=== PATIENT | female | born 1945 | race Caucasian/White ===

== ENCOUNTER 2023-07-04 15:42 | Emergency (ER) | payer MEDICARE ==
--- NOTE | 2023-07-04 15:44 | ERPHSYRPT ---
- History of Present Illness Source: patient, family, EMS Exam Limitations: no limitations Occurred: just prior to arrival Injuries/Pain Location: lower extremity (Left hip, left femur and left knee) Loss of Consciousness: no loss of consciousness Severity of Pain-Max: moderate Severity of Pain-Current: moderate (With movement) Modifying Factors: Improves With: movement Associated Symptoms (Fall): extremity injury (Left hip, left femur and left knee) - History of Present Illness Time Seen by Provider: 07/04/23 15:44 Physician History: This is a 77-year-old white female patient was brought into the emergency department by ambulance service secondary to falling at the bank. She tripped over slightly raised ledge. She fell hitting her left hip and left upper leg and knee. Patient has had hip replacement twice on the left side. She stated that she did very slightly hit her left elbow and her forehead. However, she states that she did not lose consciousness. She specifically stated she does not want a CT scan of her head or an x-ray of the left elbow. She is mostly concerned about the left hip and femur and left knee. Patient denies chest pain. Patient denies shortness of breath. She has no abdominal pain. Patient states she does not want these x-rays performed. However, she does not want any narcotic medication. She will agree to Tylenol medication. She states "I cannot be here I have to get home to my who has lung cancer" (NESTOR PONCE) Allergies/Adverse Reactions: morphine Adverse Reaction (Verified 07/04/23 15:47) Home Medications: Lansoprazole 15 mg PO DAILY 07/04/23 [History] Travel Risk - International Travel Have you traveled outside of the country in past 3 weeks: No - Coronavirus Screening Are you exhibiting any of the following symptoms?: No Close contact with a COVID-19 positive Pt in past 14-21 Days: No - Review of Systems Constitutional: No Symptoms Eyes: No Symptoms Ears, Nose, & Throat: No Symptoms Respiratory: No Symptoms Cardiac: No Symptoms Abdominal/Gastrointestinal: No Symptoms Genitourinary Symptoms: No Symptoms Musculoskeletal: Injury (Left hip, left femur and left knee) Skin: No Symptoms Neurological: No Symptoms Psychological: No Symptoms Endocrine: No Symptoms Hematologic/Lymphatic: No Symptoms Immunological/Allergic: No Symptoms All Other Systems: Reviewed and Negative - Past Medical History Pertinent Past Medical History: Yes - Past Surgical History Past Surgical History: Yes - E[place]oy Coma Score Best Eye Response (Eleroy): (4) open spontaneously Best Verbal Response (Elena): (5) oriented Best Motor Response (Eleroy): (6) obeys commands [place] Total: 15 - Physical Exam General Appearance: no apparent distress, alert, anxiety Head Injury: no evidence of injury Eye Exam: PERRL/EOMI, eyes nml inspection ENT Exam: airway nml, nml ext.inspection Neck Exam: supple, trachea midline, full range of motion, normal alignment, normal inspection Respiratory/Chest Exam: normal breath sounds, No chest tenderness, No respiratory distress, No ecchymosis, No crepitus Cardiovascular Exam: normal heart sounds, regular rate/rhythm Gastrointestinal Exam: soft, normal bowel sounds, No tenderness Rectal Exam: not done Back Exam: normal inspection, normal range of motion, No CVA tenderness, No vertebral tenderness Extremity Exam: normal inspection, normal range of motion (Hurts to flex and extend the left hip and left knee. There is no external rotation on the left side), pelvis stable Neurologic Exam: alert, oriented x 3, cooperative, marketing and development coordinator II-XII nml as tested, normal mood/affect, sensation nml Skin Exam: normal color, warm, dry SpO2 Interpretation: normal O2 Delivery: Room Air - Nursing Vital Signs Nursing Vital Signs: Initial Vital Signs Temperature 97.3 F 07/04/23 15:54 Pulse Rate 70 07/04/23 15:54 Respiratory Rate 18 07/04/23 15:54 Blood Pressure 130/90 07/04/23 15:54 O2 Sat by Pulse Oximetry 99 07/04/23 15:54 Pain Scale Pain Intensity 2 - Course Nursing assessment & vital signs reviewed: Yes Ordered Tests: Active Orders 24 hr Category Date Time Status EKG-ER Only STAT Care 07/04/23 19:22 Active IV Insertion STAT Care 07/04/23 19:22 Active FEMUR Stat Exams 07/04/23 16:18 Completed HIP UNI (2V) INCL PEL IF DONE Stat Exams 07/04/23 16:18 Completed KNEE (3 VIEWS) Stat Exams 07/04/23 16:19 Completed CBC W DIFF Stat Lab 07/04/23 19:45 Completed CMP Stat Lab 07/04/23 19:45 Completed TROPONIN Q4H Lab 07/04/23 20:00 Completed TROPONIN Q4H Lab 07/05/23 00:15 Ordered TROPONIN Q4H Lab 07/05/23 04:15 Ordered Medication Summary Discontinued Medications Generic Name Dose Route Start Last Admin Trade Name Luli PRN Reason Stop Dose Admin Acetaminophen 650 mg 07/04/23 16:19 07/04/23 17:03 Acetaminophen 325 Mg Tablet PO 07/04/23 16:20 Not Given STAT ONE Acetaminophen Confirm 07/04/23 16:36 Acetaminophen 325 Mg Tablet Administered 07/04/23 16:37 Dose 650 mg .ROUTE .STK-MED ONE Ondansetron HCl 4 mg 07/04/23 19:22 07/04/23 19:32 Ondansetron Hcl 4 Mg/2 Ml Vial IV 07/04/23 19:23 4 mg STAT ONE Administration Ondansetron HCl Confirm 07/04/23 19:31 Ondansetron Hcl 4 Mg/2 Ml Vial Administered 07/04/23 19:32 Dose 4 mg .ROUTE .STK-MED ONE Lab/Rad Data: Laboratory Result Diagrams 07/04/23 19:45 07/04/23 19:45 Laboratory Results 07/04/23 07/04/23 07/04/23 Range/Units 20:00 19:45 19:45 WBC 9.7 (4.0-10.5) x10^3/uL RBC 4.62 (4.1-5.4) x10^6/uL Hgb 14.1 (12.0-16.0) g/dL Hct 42.7 (35-47) % MCV 92.4 (78-100) fL MCH 30.5 (26-32) pg MCHC 33.0 (32-36) g/dL RDW 11.9 (11.5-14.0) % Plt Count 205 (150-450) x10^3/uL MPV 10.4 (7.5-11.0) fL Gran % 85.1 H (36.0-66.0) % Immature Gran % (Auto) 0.4 (0.00-0.4) % Nucleat RBC Rel Count 0.0 (0.00-0.1) % Eos # (Auto) 0.01 (0-0.5) x10^3/uL Immature Gran # (Auto) 0.04 H (0.00-0.03) x10^3u/L Absolute Lymphs (auto) 0.88 L (1.0-4.6) x10^3/uL Absolute Monos (auto) 0.51 (0.0-1.3) x10^3/uL Absolute Nucleated RBC 0.00 (0.00-0.01) x10^3u/L Lymphocytes % 9.0 L (24.0-44.0) % Monocytes % 5.2 (0.0-12.0) % Eosinophils % 0.1 (0.00-5.0) % Basophils % 0.2 (0.0-0.4) % Absolute Granulocytes 8.28 H (1.4-6.9) x10^3/uL Basophils # 0.02 (0-0.4) x10^3/uL Sodium 138 (137-145) mmol/L Potassium 3.9 (3.5-5.1) mmol/L Chloride 107 (98-107) mmol/L Carbon Dioxide 27 (22-30) mmol/L Anion Gap 7.0 (5-15) MEQ/L BUN 11 (7-17) mg/dL Creatinine 0.62 (0.52-1.04) mg/dL Estimated GFR 91.1 ML/MIN Glucose 122 H (74-106) mg/dL Calcium 9.9 (8.4-10.2) mg/dL Total Bilirubin 0.80 (0.2-1.3) mg/dL AST 22 (14-36) U/L ALT 13 (0-35) U/L Alkaline Phosphatase 93 (38-126) U/L Troponin I < 0.012 (0.000-0.034) ng/mL Serum Total Protein 6.3 (6.3-8.2) g/dL Albumin 3.9 (3.5-5.0) g/dL - Progress Progress: improved, pain not gone completely, re-examined Counseled pt/family regarding: diagnosis, need for follow-up, rad results - Progress Progress Note: 07/04/23 16:37 This patient's medical issue is 1 of low to moderate complexity. Level complex in the workup performed is based on review of the patient's past medical history, review the patient's medication list, review of the patient's drug allergy list, history present illness and physical findings on examination. The workup in this patient is based on the patient's desire to only x-ray her left hip and pelvis, left femur and left knee. She is refusing CT scan of the head and x-ray of the left elbow. 07/04/23 18:13 I I interpreted the x-rays initially. Left hip and pelvis show no acute fracture or dislocation. Left knee shows no acute fracture or dislocation. There appears to be a high riding patella. Finally, x-ray of the left femur shows a periprosthetic fracture mid shaft. The final reads were performed by Dr. Lema, our in-house radiologist. Bruna, our emergency department nurse contacted [facility]. They are not accepting any patient in transfer. Patient was placed on a transfer list. 07/04/23 19:23 Per patient request, we contacted [facility] and spoke with Dr. Min who is the trauma surgeon on-call. I discussed the patient history, presenting complaint and findings on x-ray studies. The x-rays were sent to the cloud for [facility] to evaluate. He was to contact the orthopedic surgeon. Dr. Min called back and stated that since the patient has a periprosthetic fracture, the patient should go to a higher level of care than the orthopedic surgeon at [facility] can provide. The films were reviewed by the orthopedic surgeon. To summarize, the patient declined using our orthopedic surgeons. She wanted to have her own orthopedic surgeon, Dr. Chan at [facility], to evaluate and manage her from the orthopedic standpoint. However, [facility] is not accepting any transfers at this time. She was placed on a transfer list. This was not recommended to the patient but was provided as an option which is to be nonweightbearing and have family members transport her to [facility] emergency department. This would have been only her decision. She would have to sign out AGAINST MEDICAL ADVICE. She states that she declines doing that because she cannot sit in a vehicle secondary to significant pain. The last option was to find another facility either in [place] or in [place]. Patient stated she was unsure and was going to call her family. I discussed this with Dr. Charbel Silva. I am transferring care to him at this time. He will follow-up and make final disposition. Patient has agreed to an IV line. I am drawing some labs. Will provide her with Zofran. She is allergic to morphine and Dr. Silva will determine what pain management would be best for this patient. 07/04/23 19:27 (NESTOR BELLE) Patient endorsed to Dr. Silva at approximately 7 PM. Patient accepted to [facility] in [place] by Dr. Wise at 8:12 PM 07/04/23 20:14 Complexity problem addressed is moderate acute complicated No critical care time Complexity of data reviewed and analyzed is extensive. Test ordered test reviewed results analyzed and correlated clinically with history and physical examination. Risk of complication and or risk of morbidity/mortality of patient management is high. Patient requires hospitalization/transfer to higher level of care. Vital stable. Time spent to discharge patient is approximately 35 minutes. Plan of care established for shared decision making. No social determinants of health present impede follow-up Portions of this note were created with voice recognition technology. There may be grammatical, spelling, punctuation or sound alike errors 07/04/23 21:31 (CHARBEL SILVA) Medical Desision Making - Independent Historian Additional History obtained from: Account Strategist/EMT - Diagnostic Testing Diagnostic test were ordered, analyzed, and reviewed by me: Yes Radiological Interpretation: Interpreted by me, Reviewed by me, Teleradiologist Report - Departure Departure Disposition: Transfer Critical Care Time: No - Departure Clinical Impression: Periprosthetic fracture of shaft of femur Condition: Stable Referrals: [facility] [NON-STAFF PHY W/O PRIVILEGES] - Follow up/PCP as directed
[2023-07-04 15:55] VITALS: TEMP 97.3
[2023-07-04] MEDS ORDERED: TYLENOL 325 MG ONE (16:36)
[2023-07-04] MEDS: TYLENOL 325 MG PO ONE (17:00)
--- NOTE | 2023-07-04 17:09 | XRAY ---
Indication: Status post fall. Comparison: None AP pelvis and 2 view left hip demonstrates osteopenia and bilateral total hip arthroplasty with grossly intact bipolar prosthesis. No other bony, articular, or soft tissue abnormalities.
--- NOTE | 2023-07-04 17:11 | XRAY ---
Indication: Status post fall. Comparison: None 3 view left knee demonstrates osteopenia and minimal medial joint space narrowing with faint chondrocalcinosis. No other bony, articular, or soft tissue abnormalities.
--- NOTE | 2023-07-04 17:15 | XRAY ---
Indication: Status post fall. Comparison: None 2 view left femur demonstrates nondisplaced acute spiral shaft fracture best seen crosstable lateral view. Femoral component of bipolar hip prosthesis included with fracture. Elsewhere osteopenia and left total hip arthroplasty with grossly intact bipolar prosthesis.
[2023-07-04] MEDS ORDERED: Zofran 4 MG/2 ML VIAL ONE (19:31)
[2023-07-04] MEDS: Zofran 4 MG/2 ML VIAL IV ONE (19:32)
[2023-07-04 19:54] LABS: Absolute Neutrophil Ct (ANC) 8.28 x10^3/uL (1.4-6.9); BASOPHIL % 0.2 % (0.0-0.4); Basophil (Absolute #) 0.02 x10^3/uL (0-0.4); Eosinophil % 0.1 % (0.00-5.0); Eosinophil (Absolute #) 0.01 x10^3/uL (0-0.5); Hematocrit 42.7 % (35-47); Hemoglobin 14.1 g/dL (12.0-16.0); IMMATURE GRAN # 0.04 x10^3u/L (0.00-0.03); IMMATURE GRAN % 0.4 % (0.00-0.4); Lymphocyte (Absolute #) 0.88 x10^3/uL (1.0-4.6); Mean Cell Volume 92.4 fL (78-100); Mean Corpuscular Hemoglobin 30.5 pg (26-32); Mean Platelet Volume 10.4 fL (7.5-11.0); Monocyte (Absolute #) 0.51 x10^3/uL (0.0-1.3); Monocytes % 5.2 % (0.0-12.0); Neutrophil % 85.1 % (36.0-66.0); Platelet Count 205 x10^3/uL (150-450); Red Blood Count 4.62 x10^6/uL (4.1-5.4); Red Cell Distribution Width 11.9 % (11.5-14.0); White Blood Count 9.7 x10^3/uL (4.0-10.5)
[2023-07-04 20:08] LABS: ALBUMIN 3.9 g/dL (3.5-5.0); BILIRUBIN,TOTAL 0.8 mg/dL (0.2-1.3); Calcium 9.9 mg/dL (8.4-10.2); Creatinine 1 0.62 mg/dL (0.52-1.04); EST GLOMERULAR FILTRATION RATE 91.1 ML/MIN; Potassium 3.9 mmol/L (3.5-5.1); Total Protein 6.3 g/dL (6.3-8.2)
[2023-07-04 21:04] VITALS: BP 135/64; PULSE 77; RESP 16; O2SAT 97
[2023-07-04 22:23] LABS: Appearance Clear (Clear); Bacteria None Seen /HPF (None Seen); Bilirubin Negative (Negative); Blood Negative (Negative); Epithelial Cells None Seen /HPF (None Seen); Glucose, Urine Negative (Negative); Hyaline Casts NONE SEEN /LPF (0-2); Ketones Trace (Negative); Leukocyte Esterase Trace (Negative); Nitrite Negative (Negative); Protein,Urine Dip Negative (Negative); RBC 0-2 /HPF (0-5); Urobilinogen 0.2 mg/dL (0.2)
[2023-07-04 22:25] LABS: ADD URINE CULTURE? ORDERED SEPARATELY (NO)
== END 2023-07-04 22:04 | disposition short-term general hospital (02) ==
LOC: ED 15:42
DX: S72.302A Unspecified fracture of shaft of left femur, initial encounter for closed fracture (principal); M97.02XA Periprosthetic fracture around internal prosthetic left hip joint, initial encounter; W18.30XA Fall on same level, unspecified, initial encounter; Y92.510 Bank as the place of occurrence of the external cause; Z79.899 Other long term (current) drug therapy
CPT/HCPCS: 36000; 36415; 51702; 73502; 73552; 73562; 80053; 81001; 84484; 85025; 87086; 93005; 96374; 99285; J2405; A9270-GY